=== PATIENT | female | born 1995 | race Caucasian/White ===

== ENCOUNTER 2018-03-11 13:58 | Emergency (ER) | payer MEDICAID ==
[~2018-03-11] VITALS: Ht 157.5 cm; Wt 57.2 kg
[2018-03-11 14:13] VITALS: BP_SYST 126
--- NOTE | 2018-03-11 14:54 | NUR ---
Patient to ER bed 8 to gown for evaluation. Side rails up. Report given to Tenzin WOOD.
--- NOTE | 2018-03-11 15:00 | NUR ---
Pt c/o rectal bleeding w/ BM. Pt has no acute distress noted.
--- NOTE | 2018-03-11 15:15 | NUR ---
ROXANA Evans at bedside examining patient.
--- NOTE | 2018-03-11 15:25 | NUR ---
Rectal exam done by IRMA Evans and Melania RN air export coordinator.
[2018-03-11] MEDS ORDERED: ACETAMINOPHEN 500 MG TABLET PO ONE (15:45)
[2018-03-11 15:48] LABS: BASOPHILS % (AUTO) 0.6 % (0.0-2.0); EOSINOPHILS % (AUTO) 0.6 % (0.0-4.0); HEMATOCRIT 39.4 % (36-48); HEMOGLOBIN 13.2 g/dL (12.0-16.0); LYMPHOCYTES # (AUTO) 1.4 K/uL (1.0-5.5); LYMPHOCYTES % (AUTO) 16.9 % (20.5-51.5); MEAN CORPUSCULAR HEMOGLOBIN 29 pg (27-31); MEAN CORPUSCULAR HGB CONC 34 % (32-36); MEAN CORPUSCULAR VOLUME 86 fL (79.0-98.0); MONOCYTES # (AUTO) 0.8 K/uL (0.0-1.0); MONOCYTES % (AUTO) 9.9 % (1.7-9.3); NEUTROPHILS # (AUTO) 5.8 K/uL (1.8-7.7); PLATELET COUNT (AUTO) 341 K/uL (130-430); RED BLOOD CELL COUNT(AUTO) 4.55 MIL/uL (4.2-6.2); RED CELL DISTRIBUTION WIDTH 12.6 % (9.0-15.0)
[2018-03-11 15:55] LABS: CALCIUM 9.1 mg/dL (8.4-11.0); CREATININE 0.53 mg/dL (0.55-1.30); POTASSIUM 3.5 mmol/L (3.5-5.1)
[2018-03-11 16:00] LABS: ALBUMIN 3.9 g/dL (3.4-4.8); TOTAL BILIRUBIN 0.3 mg/dL (0.0-1.0)
--- NOTE | 2018-03-11 16:06 | NUR ---
Patient transported to radiology via WC, accompanied by rad staff.
--- NOTE | 2018-03-11 16:15 | NUR ---
Returned from radiology, back to [facility].
[2018-03-11 17:00] VITALS: BP_SYST 124
--- NOTE | 2018-03-11 17:00 | NUR ---
Patient given written and verbal discharge instructions and verbalizes understanding. ER MD discussed with patient the results and treatment provided. Patient in stable condition. ID arm band removed. Rx of docusate given. Patient educated on pain management and to follow up with PMD. Pain Scale 0. Opportunity for questions provided and answered. Medication side effect fact sheet provided.
== END 2018-03-11 17:00 | disposition home or self-care (01) ==
LOC: SED 13:58
DX: K60.2 Anal fissure, unspecified (principal); R03.0 Elevated blood-pressure reading, without diagnosis of hypertension
CPT/HCPCS: 36415; 80053; 81025; 82272; 85025; 99285